=== PATIENT | female | born 1955 | race Hispanic/Latino ===

== ENCOUNTER 2022-08-05 18:59 | Emergency (ER) | payer OTHER ==
[~2022-08-05] VITALS: Ht 160 cm; Wt 106.6 kg
[2022-08-05] MEDS ORDERED: ACETAMINOPHEN 325 MG TAB ONE (19:26)
[2022-08-05] MEDS ORDERED: ACETAMINOPHEN 325 MG TAB PO ONE (19:30)
[2022-08-05 20:10] VITALS: O2SAT 97
== END 2022-08-05 20:21 | disposition home or self-care (01) ==
LOC: FSED 19:24
DX: R07.81 Pleurodynia (principal); V43.62XA Car passenger injured in collision with other type car in traffic accident, initial encounter; Y92.488 Other paved roadways as the place of occurrence of the external cause; I10 Essential (primary) hypertension; E11.9 Type 2 diabetes mellitus without complications
CPT/HCPCS: 71045; 93005; 99283